=== PATIENT | female | born 1970 | race Caucasian/White ===

== ENCOUNTER 2016-11-11 13:31 | Observation (INO) | payer OTHER ==
--- NOTE | ~2016-11-11 | HP ---
History And Physical [place] [id number] [facility] [place]. [address] NAME: FELIX PHOENIX : 68 STATUS : ADM Haleigh PAT#: [id number] AGE: 46 ADM/REG DATE : 11/11/16 MR#: [id number] REPORT SERV DATE: 11/11/16 DICTATED BY: MANDIE TRIPP DATE: 11/11/16 REPORT STATUS : Draft TRANSCRIBED BY: CARY DATE: 11/11/16 DATE OF ADMISSION: 11/11/2016 CHIEF COMPLAINT: Atypical chest pain. HISTORY OF PRESENT ILLNESS: A very pleasant 46-year-old white female with no known history of CAD. States that for several weeks she has had this sensation of a "gas bubble in my chest." She describes the discomfort as coming in spasms. She has tried multiple antacids with no improvement in her symptoms. The discomfort was more intense today. She describes it as stabbing, right-sided in nature, that does not radiate elsewhere with some associated nausea and belching. She denies shortness of breath, diaphoresis, and dizziness. At its most intense, the chest pain was rated a 9/10. At the time of interview in the CP, she rates it a 1/10 with some residual soreness. She took aspirin and Aleve prior to arrival. She denies any pattern with meals or activity. There is no exertional component described. Of interest, the patient states that she has been "itching all over" for several days which has now resolved. She states it started in the palms of her hands and she has itched from head to toe, but no rash, no erythema, no welts described by the patient or visible on exam. The patient denies any personal history of myocardial infarction, stroke, DVT, or pulmonary embolus. The patient denies any recent fever or chills, no palpitations, no syncopal episodes. Denies PND or orthopnea. PAST MEDICAL HISTORY: 1. Anxiety. 2. Obesity. 3. Denies hypertension, dyslipidemia, or diabetes. PAST SURGICAL HISTORY: 1. Cholecystectomy. 2. Hysterectomy. 3. Tonsillectomy. 4. Right ganglion cyst. SOCIAL HISTORY: She is with two children. 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 She does not have an exercise routine. Denies tobacco or illicits. Rarely consumes alcohol. FAMILY HISTORY: No embolic events reported in first-degree relatives. Mother and father of lung cancer and/or metastases at 53 for mother and 70 for father. REVIEW OF SYSTEMS: A 14-point review of systems performed, significant for HPI, including snores per report with no formal sleep study. Otherwise, complete review of systems obtained and negative. ALLERGIES: PENICILLIN CAUSES A RASH. History And Physical [address] [address] NAME: FELIX PHOENIX : [birth year] STATUS : ADM Haleigh PAT#: [id number] AGE: 46 ADM/REG DATE : 11/11/16 MR#: [id number] REPORT SERV DATE: 11/11/16 DICTATED BY: MANDIE TRIPP DATE: 11/11/16 REPORT STATUS : Draft TRANSCRIBED BY: CARY DATE: 11/11/16 HOME MEDICATIONS: Wellbutrin 150 daily, Celexa 40 mg daily, Nexium 20 mg daily, Pepcid 40 mg daily, Aleve p.r.n., Mytab Gas p.r.n., XFactor vitamin daily, Ambien 10 mg daily p.r.n. PHYSICAL EXAMINATION: VITAL SIGNS: Bilateral blood pressures on arrival, right 129/76, left 116/71. Pulse 72, respirations 20, temperature 98.1, O2 saturation 97% on room air. Height 5 feet 5 inches, weight 215 pounds. BMI 36. GENERAL: Cooperative, in no apparent distress. HEENT: Pupils 2 mm, sclera nonicteric. Nares patent. Moist mucous membranes. No xanthelasma. NECK: Trachea midline, no thyromegaly. No JVD. No bruits. LYMPH: No cervical lymphadenopathy. No supraclavicular lymphadenopathy. RESPIRATORY: Unlabored respirations. Breath sounds clear bilaterally to posterior auscultation. No wheezes or rhonchi. CARDIOVASCULAR: Regular rate. No murmur, rub or gallop appreciated. Extremities without edema. Pulses 2+ bilaterally. ABDOMEN: Soft, nontender, nondistended, normal bowel sounds auscultated throughout. No organomegaly. SKIN: Warm, dry extremities. No pallor, or cyanosis. PSYCHIATRIC: Appropriate affect. Alert, oriented x3. LABORATORY DATA: Troponin less than 0.02, once; second at 1800 hours. Potassium 4.3, BUN 12, creatinine 0.86, glucose 107, magnesium 2.3. WBC 5.9, hemoglobin 13.4, hematocrit 37.7, platelet count 259. EKG, sinus rhythm. ASSESSMENT AND PLAN: 1. Atypical chest pain. The patient will be observed in the CPOU overnight to rule out myocardial infarction per protocol with serial enzymes and serial EKGs and held n.p.o. for stress echo in the morning. The patient will be discharged home if negative study to follow up with her PCP in one to two weeks. If anything suggestive of ischemia, Cardiology referral will be initiated. 2. Obesity. Exercise and diet recommended. ERIN/MODL CHALO De Dios, FRAME STRIPPER-BC / [id number] CC: CHALO De Dios, FRAME STRIPPER[employer]BC Prabhu Bentley M.D.
[2016-11-11 12:24] LABS: BASOPHILS 0.3 %; BASOPHILS ABSOLUTE 0.02 10/3/uL (0.0-0.16); EOSINOPHILS 3.2 %; EOSINOPHILS ABSOLUTE 0.19 10/3/uL (0.0-0.53); HEMATOCRIT 37.7 % (36.0-48.0); HEMOGLOBIN 13.4 g/dL (12.0-16.0); IMMATURE GRANULOCYTES 0.2 %; IMMATURE GRANULOCYTES ABSOLUTE 0.01 10/3/uL (0.0-0.11); LYMPHOCYTES 31.9 %; LYMPHOCYTES ABSOLUTE 1.89 10/3/uL (0.67-4.30); MANUAL DIFF NO %; MEAN CORPUS HGB CONC 35.5 g/dL (32.0-36.0); MEAN CORPUSCULAR HEMOGLOB 30.5 pg (26.0-34.0); MEAN CORPUSCULAR VOLUME 85.7 fL (80-100); MEAN PLATELET VOLUME 8.9 fL (9.2-13.0); MONOCYTES 5.6 %; MONOCYTES ABSOLUTE 0.33 10/3/uL (0.21-1.20); NEUTROPHILS 58.8 %; NEUTROPHILS ABSOLUTE 3.48 10/3/uL (2.02-8.40); PLATELET COUNT 259 10/3/uL (150-400); RBC DISTRIBUTION WIDTH 12.6 % (12.0-16.0); WHITE BLOOD CELLS 5.9 10/3/uL (4.5-10.5)
[2016-11-11 12:31] LABS: PARTIAL THROMBO TIME 36.5 SEC (22.5-37.2); PROTIME (NOT ORD) 12.9 SEC (12.0-14.5)
[2016-11-11 12:43] LABS: BUN (BLOOD UREA NITROGEN) 12 MG/DL (6-23); CHEST PAIN PROFILE TAT 0 Hrs 23 Mins; CHLORIDE, SERUM 105 MMOL/L (96-112); CO2 (CARBON DIOXIDE) 27 MMOL/L (24-34); CREATININE 0.86 MG/DL (0.55-1.02); GFR AFRICAN AMERICAN 93 ML/MIN (>=60); GFR NON AFRICAN AMERICAN 80 ML/MIN (>=60); POTASSIUM, SERUM 4.3 MMOL/L (3.5-5.3); SODIUM, SERUM 140 MMOL/L (135-148); TROPONIN I <0.02 NG/ML (<0.05)
[2016-11-11 12:44] LABS: GLUCOSE, SERUM 107 MG/DL (60-99)
[2016-11-11] MEDS ORDERED: PEPCID40 MG PO (13:50)
[2016-11-11] MEDS ORDERED: WELLXL150 PO (13:50)
[2016-11-11] MEDS ORDERED: NEXIUM20 M1 PO (13:50)
[2016-11-11] MEDS ORDERED: CELEXA40 MG PO (13:50)
[2016-11-11] MEDS ORDERED: ALEVE220 MG PO (13:51)
[2016-11-11] MEDS ORDERED: MYTAB GAS125 MG PO (13:51)
[2016-11-11] MEDS ORDERED: [UNRECOGNIZED DRUG - OTHER] PO (13:52)
[2016-11-11] MEDS ORDERED: AMB10 PO (13:52)
== END 2016-11-12 16:32 | disposition home or self-care (01) ==
LOC: ER 13:31 → CDU1 13:38
PROVIDERS: Emergency Medicine
DX: R07.89 Other chest pain (principal); F41.9 Anxiety disorder, unspecified; E66.9 Obesity, unspecified; Z90.49 Acquired absence of other specified parts of digestive tract; Z90.710 Acquired absence of both cervix and uterus; Z98.890 Other specified postprocedural states; Z79.899 Other long term (current) drug therapy; Z88.0 Allergy status to penicillin
CPT/HCPCS: 71010; 80048; 83735; 84484; 85025; 85610; 85730; 93005; 93017; 93350; 96374; 99285; A9270-GY; C8928; G0378; J1885